=== PATIENT | female | born 1995 | race Caucasian/White ===

== ENCOUNTER 2020-11-03 12:15 | Emergency (ER) | payer OTHER ==
--- NOTE | 2020-11-03 12:28 | EDM.PDOC ---
ED HPI GENERAL MEDICAL PROBLEM - General Chief Complaint: Skin Complaint Stated Complaint: LEFT HAND LACERATION Time Seen by Provider: 11/03/20 12:28 Source of Information: Reports: Patient - History of Present Illness INITIAL COMMENTS - FREE TEXT/NARRATIVE: Beth, 25 year old female. Presents with a work occurrence injury laceration 2 cm long to the dorsum of the left second digit MCP. Bleeding is controlled at time of arrival. 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 Digit is intact to motion with bleeding, held pressure, has controlled. Is in need of tetanus booster No other complaints or concerns. Onset: Today, Sudden Duration: Minutes: Location: Reports: Upper Extremity, Left Left Finger-Index Pain Score (Numeric/FACES): 5 - Related Data Allergies Allergy/AdvReac Type Severity Reaction Status Date / Time ciprofloxacin Allergy Mild Rash Verified 11/03/20 12:48 Home Meds: Home Meds Desogestrel-Ethinyl Estradiol [Isibloom 28 Day Tablet] 1 each PO DAILY 11/03/20 [History] Vortioxetine Hydrobromide [Brintellix] 20 mg PO DAILY 11/03/20 [History] traZODone 150 mg PO BEDTIME 11/03/20 [History] Past Medical History Psychiatric History: Reports: Emotional Problems, Suicide Attempt, Suicidal Ideation Social & Family History - Family History Family Medical History: No Pertinent Family History ED ROS GENERAL - Review of Systems Review Of Systems: Comprehensive ROS is negative, except as noted in HPI. ED EXAM, GENERAL - Physical Exam Exam: See Below Free Text/Narrative:: Alert oriented in no acute distress. HEENT is negative to discharge or deformity. PERRLA no icterus no injection. No respiratory distress with no audible extraneous breath sounds. Pulses regular strong with no ectopic beats palpated. Focused examination to the left hand showing a 2 cm laceration slightly lateral of the second digit MCP joint. Full motion is intact to flexion and extension. It does not go through to the tendon being marginally a full-thickness wound at points. Trace fat tissue exposure on the distal aspect. ED GENERAL MEDICAL PROCEDURES - Laceration/Wound Repair Left Ventral Hand Lac/wound length in cm: 2 Appearance: Subcutaneous Distal NVT: Neuro & Vascular Intact, No Tendon Injury Anesthetic Type: Local Local Anesthesia - Lidocaine (Xylocaine): 2% Plain Local Anesthetic Volume: 2cc Skin Prep: Providone-Iodine (Betadine) Exploration/Debridement/Repair: Wound Explored, In a Bloodless Field, Explored to Base Closed with: Sutures Suture Size: 4-0 # of Sutures: 5 Suture Type: Nylon, Interrupted Sterile Dressing Applied: Nurse Tetanus Status Addressed: Yes Complications: No Course - Vital Signs Last Recorded V/S: Last Vital Signs Temp 97.1 F 11/03/20 12:20 Pulse 115 H 11/03/20 12:20 Resp 20 11/03/20 12:20 BP 152/107 H 11/03/20 12:20 Pulse Ox - Orders/Labs/Meds Orders: Active Orders 24 hr Category Date Time Status Vaccines to be Administered [RC] PER UNIT ROUTINE Care 11/03/20 12:35 Active Meds: Medications Discontinued Medications Generic Name Dose Route Start Last Admin Trade Name Freq PRN Reason Stop Dose Admin Diphtheria/Tetanus/Acell Pertussis 0.5 ml 11/03/20 12:35 11/03/20 13:03 Diphtheria,Pertussis(Acell),Tetanus Vaccine 0.5 Ml Syringe IM 11/03/20 12:36 0.5 ml .ONCE ONE Administration Lidocaine 5 ml 11/03/20 12:34 11/03/20 13:04 Lidocaine 2% 5 Ml Sdv INJECT 11/03/20 12:35 5 ml ONETIME ONE Administration Lidocaine Confirm 11/03/20 12:37 11/03/20 13:04 Lidocaine 2% 5 Ml Sdv Administered 11/03/20 12:38 Not Given Dose 5 ml .ROUTE .STK-MED ONE Neomycin/Polymyxin/Bacitracin 1 each 11/03/20 12:35 11/03/20 13:04 Bacitracin/Neomycin/Polymyxin B Oint 0.9 Gm U/D Packet TOP 11/03/20 12:36 1 each ONETIME ONE Administration - Re-Assessments/Exams Free Text/Narrative Re-Assessment/Exam: 11/03/20 13:16 Tolerated overall procedure with discomfort to the distal suture placement. Departure - Departure Time of Disposition: 13:08 Disposition: Home, Self-Care 01 Condition: Good Clinical Impression: Laceration, Need for Tdap vaccination - Discharge Information *PRESCRIPTION DRUG MONITORING PROGRAM REVIEWED*: Not Applicable *COPY OF PRESCRIPTION DRUG MONITORING REPORT IN PATIENT SALMA: Not Applicable Instructions: Laceration Care, Adult, VIS, Tetanus, Diphtheria, and Pertussis (Tdap) - CDC (06/01/2019) Referrals: Supriya Almazan, [employer] [Primary Care Provider] - Forms: ED Department Discharge Additional Instructions: Your tetanus diphtheria status was updated. You will be good for 5 to 10 years depending on the severity of any injury. 5 sutures were placed on the edge of the knuckle of the index finger of your left hand. These need to be removed in 10 days. You may present to your clinic for this by calling for an appointment or calling the clinic here at the hospital where they will be removed free of charge as part of the fee from the emergency department visit. You need to keep this clean and dry as possible changing the dressing especially if it gets wet or dirty. You will need to wear some form of a glove to protect the wound and Band-Aid until it is healed and sutures are removed. Try avoid using gloves that have powder or some form of coating to them as it irritates the tissue. Watch for signs of infection increased swelling, redness, or drainage. You may shower or sponge bathe..Do not swim, soak in a tub, or put your hand into riley water or other non-nonclean areas. Again sutures should be removed in 10 days calling for an appointment. Sepsis Event Note (ED) - Focused Exam Vital Signs: Vital Signs Temp Pulse Resp BP 11/03/20 12:20 97.1 F 115 H 20 152/107 H - Problem List & Annotations (1) Laceration SNOMED Code(s): 734168589 Code(s): QHB4757 - Status: Acute Priority: High Current Visit: Yes (2) Need for Tdap vaccination SNOMED Code(s): 660678313, 650292626139707 Code(s): Z23 - ENCOUNTER FOR IMMUNIZATION Status: Acute Priority: High Current Visit: Yes - Problem List Review Problem List Initiated/Reviewed/Updated: Yes - My Orders Last 24 Hours: My Active Orders 11/03/20 12:35 Vaccines to be Administered [RC] PER UNIT ROUTINE - Assessment/Plan Last 24 Hours: My Active Orders 11/03/20 12:35 Vaccines to be Administered [RC] PER UNIT ROUTINE Plan: Your tetanus diphtheria status was updated. You will be good for 5 to 10 years depending on the severity of any injury. 5 sutures were placed on the edge of the knuckle of the index finger of your left hand. These need to be removed in 10 days. You may present to your clinic for this by calling for an appointment or calling the clinic here at the hospital where they will be removed free of charge as part of the fee from the emergency department visit. You need to keep this clean and dry as possible changing the dressing especially if it gets wet or dirty. You will need to wear some form of a glove to protect the wound and Band-Aid until it is healed and sutures are removed. Try avoid using gloves that have powder or some form of coating to them as it irritates the tissue. Watch for signs of infection increased swelling, redness, or drainage. You may shower or sponge bathe..Do not swim, soak in a tub, or put your hand into riley water or other non-nonclean areas. Again sutures should be removed in 10 days calling for an appointment.
[2020-11-03] MEDS ORDERED: Lidocaine 2% 5 ML SDV INJECT ONE (12:34)
[2020-11-03] MEDS ORDERED: Bacitracin/Neomycin/Polymyxin B Oint 0.9 GM U/D Packet TOP ONE (12:35)
[2020-11-03] MEDS ORDERED: Diphtheria,Pertussis(Acell),Tetanus Vaccine 0.5 ML Syringe IM ONE (12:35)
[2020-11-03] MEDS ORDERED: Lidocaine 2% 5 ML SDV ONE (12:37)
== END 2020-11-03 13:25 | disposition home or self-care (01) ==
LOC: KA.ED 12:15
DX: S61.211A Laceration without foreign body of left index finger without damage to nail, initial encounter (principal); Z88.1 Allergy status to other antibiotic agents; Z23 Encounter for immunization; W26.0XXA Contact with knife, initial encounter; Y99.0 Civilian activity done for income or pay
CPT/HCPCS: 12001; 90471; 90715; 99282-25; 99283

== ENCOUNTER 2023-10-10 09:29 | Emergency (ER) | payer MEDICAID ==
[2023-10-10] MEDS: Diphtheria,Pertussis(Acell),Tetanus Vaccine 0.5 ML Syringe IM ONE (10:05)
== END 2023-10-10 10:15 | disposition home or self-care (01) ==
LOC: KA.ED 09:29 → MERGE 09:29 → KA.ED 10:15
DX: S61.211A Laceration without foreign body of left index finger without damage to nail, initial encounter (principal); Z88.1 Allergy status to other antibiotic agents; W26.0XXA Contact with knife, initial encounter
CPT/HCPCS: 12001; 99282; 99283

== ENCOUNTER 2023-11-02 20:17 | Emergency (ER) | payer MEDICAID ==
[2023-11-02] MEDS: Ondansetron 4 MG/2 ML SDV IVPUSH ONE (20:45)
[2023-11-02] MEDS: Sodium Chloride 0.9% 1,000 ML IV ONE (20:52)
[2023-11-02 20:56] LABS: BASOPHILS ABSOLUTE AUTO 0.01 10^3/uL (0.00-0.10); BASOPHILS PERCENT AUTO 0.1 % (0.0-1.0); HEMATOCRIT 38.9 % (37.0-47.0); HEMOGLOBIN 13.4 g/dL (12.0-16.0); IMMATURE GRAN ABSOLUTE AUTO 0.02 10^3/uL (0.00-0.50); IMMATURE GRAN PERCENT AUTO 0.2 % (0.0-5.0); LYMPHOCYTES ABSOLUTE AUTO 1.24 10^3/uL (1.00-4.00); LYMPHOCYTES PERCENT AUTO 11.2 % (20.0-40.0); MEAN CORPUSCULAR HEMOGLOBIN 30.7 pg (27.0-31.0); MEAN CORPUSCULAR HGB CONC 34.4 g/dL (32.0-36.0); MEAN CORPUSCULAR VOLUME 89.2 fL (82.0-92.0); MEAN PLATELET VOLUME 10.7 fL (7.4-10.4); MONOCYTES PERCENT AUTO 4.5 % (2.0-8.0); NEUTROPHILS ABSOLUTE AUTO 9.27 10^3/uL (2.50-7.00); PLATELET COUNT,PLT 201 10^3/uL (150-400); RED BLOOD CELL COUNT 4.36 10^6/uL (3.80-5.50); WHITE BLOOD CELL COUNT,WBC 11.04 10^3/uL (5.00-10.00)
[2023-11-02 21:14] LABS: ALBUMIN 3.75 g/dL (3.40-5.00); BILIRUBIN TOTAL 0.4 mg/dL (0.2-1.0); CALCIUM 9.4 mg/dL (8.7-10.3); CARBON DIOXIDE,CO2 24.7 mmol/L (21.0-32.0); CREATININE 0.5 mg/dL (0.51-1.17); EST CRCL DRUG DOSING (CG) 168.98 mL/min; POTASSIUM,K 3.7 mmol/L (3.5-5.1); PROTEIN TOTAL,TP 7.5 g/dL (6.4-8.2)
== END 2023-11-02 21:58 | disposition home or self-care (01) ==
LOC: KA.ED 20:17
DX: O21.9 Vomiting of pregnancy, unspecified (principal); Z87.891 Personal history of nicotine dependence; Z79.899 Other long term (current) drug therapy; Z3A.01 Less than 8 weeks gestation of pregnancy
CPT/HCPCS: 80053; 85025; 96361; 96374; 99284; 99284-25; J2405; J7030